=== PATIENT | male | born 1950 | race Caucasian/White ===

== ENCOUNTER 2020-04-20 19:27 | Emergency (ER) | payer MEDICARE, MEDICAID, SELFPAY ==
--- NOTE | 2020-04-20 20:37 | ED.CPR ---
HPI - CPR General Chief Complaint: Cardiac Arrest/CPR Stated Complaint: CARDIAC ARREST Time Seen by Provider: 04/20/20 20:29 Source: EMS Mode of arrival: EMS History of Present Illness HPI narrative: patient has history of hypertension congestive heart failure end-stage renal disease on hemodialysis has ICD placed. Patient had dialysis today patient been not feeling good for last few days and around 1854 patient became very weak and had witnessed arrest in front of the family ACLS protocol started by EMS initial rhythm was bradycardia with heart rate in 50s white complex patient if later went off 5 times received multiple doses of epi and calcium chloride. 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 showed wide complex PEA patient had Hu's airway placed by EMS MD complaint: collapsed during rest Related Data Allergies Allergy/AdvReac Type Severity Reaction Status Date / Time shellfish derived Allergy Mild RASH Unverified 03/12/20 17:10 [SHELLFISH DERIVED] Review of Systems Review of Systems: Yes Unobtainable due to mental condition [facility] Social History Social History Advance Directives: No Advance Directives Information Provided: Yes Physical Exam Const: Other: CPR in progress Nutritional Appearance: cachectic HENMT: Other: atraumatic Head: Yes normal to inspection Resp: Other: no spontaneous respiration equal air entry with Ambu bag bilateral Cardio: Other: no spontaneous cardiac activity Neuro: Other: patient unresponsive pupils fixed and dilated no signs of trauma body warm Course Course Course Narrative: patient continued to be in PEA bedside cardiac echo showed asystole with no pericardial effusion no cardiac activities. No pulses palpable. Patient pronounced at 1934 firestopper installer showed asystole MDM - Cardiac Arrest/CPR MDM Narrative Medical decision making narrative: patient with significant history atherosclerotic heart disease status post ICD came with witnessed cardiac arrest shocked 5 times by the ICD without any significant response on arrival patient's pulse was PEA with asystole bedside ultrasound of the heart showed asystole with no pericardial fusion patient pronounced at 19:34. Family was called. 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
--- NOTE | 2020-04-20 21:37 | PC.NURSE ---
Family would like to use [facility] in [place]
== END 2020-04-21 | disposition expired ==
PROVIDERS: Emergency Provider Internal Medicine
DX: I46.9 Cardiac arrest, cause unspecified (principal)
CPT/HCPCS: 92950; 96374; 96375; 99283; J0171